=== PATIENT | male | born 1995 | race African-American/Black ===

== ENCOUNTER 2024-01-02 20:41 | Emergency (ER) | payer SELFPAY ==
[2024-01-02 20:47] VITALS: BP 126/76; PULSE 83; RESP 20; TEMP 98.2; BMI 25.1
[2024-01-02] MEDS ORDERED: ACETAMINOPHEN INJECTION 100 ML IVPB ONE (21:55)
[2024-01-02] MEDS ORDERED: DIPHTH,PERTUSS(ACELL),TET 0.5 ML DISP.SYRIN IM ONE (21:55)
[2024-01-02] MEDS ORDERED: METOCLOPRAMIDE HCL INJECTION 10 MG/2 ML VIAL ONE (21:55)
[2024-01-02 22:03] LABS: BASO % 0.6 % (0-2.0); EOS % 4.2 % (0-4.5); HEMATOCRIT 40.8 % (35.4-49); HEMOGLOBIN 13.5 GM/dL (11.7-16.9); LYMPH % 19.4 % (8-40); MCH 25.9 pg (25.7-33.7); MCHC 33.2 g/dl (32.0-35.9); MEAN CELL VOLUME 78.1 fl (80-96); MONO % 11.8 % (3.8-10.2); PLATELET COUNT 226 10^3/uL (134-434); RBC 5.22 M/mm3 (4.00-5.60); RDW 14.3 % (11.9-15.9); WHITE BLOOD COUNT 6.2 K/mm3 (4.0-10.0)
[2024-01-02] MEDS: SODIUM CHLORIDE 0.9% 500 ML INFUS.BAG IV ONE (22:04)
[2024-01-02] MEDS: DIPHTH,PERTUSS(ACELL),TET 0.5 ML DISP.SYRIN IM ONE (22:04)
[2024-01-02] MEDS: ACETAMINOPHEN 1000 MG/100 ML BAG IVPB ONE (22:04)
[2024-01-02] MEDS: METOCLOPRAMIDE HCL INJECTION 10 MG/2 ML VIAL IVPB ONE (22:04)
[2024-01-02 22:15] LABS: POTASSIUM 3.9 mmol/L (3.5-5.1)
[2024-01-02 22:17] LABS: CALCIUM 9.1 mg/dL (8.5-10.1)
[2024-01-02 22:18] LABS: ALBUMIN 4.1 g/dl (3.4-5.0); BLOOD UREA NITROGEN 12.4 mg/dL (7-18)
[2024-01-02 22:21] LABS: CREATININE 1.1 mg/dL (0.55-1.3)
[2024-01-02 22:22] LABS: BILIRUBIN,TOTAL 0.7 mg/dL (0.2-1)
[2024-01-02 22:23] LABS: TOT PROT 7.5 g/dl (6.4-8.2)
[2024-01-02] MEDS ORDERED: CEPHALEXIN MONOHYDRATE 500 MG CAPSULE (UD) ONE (23:20)
[2024-01-02] MEDS: CEPHALEXIN MONOHYDRATE 500 MG CAPSULE (UD) PO ONE (23:23)
== END 2024-01-02 23:28 | disposition home or self-care (01) ==
LOC: JER 20:41
PROC: 3E033NZ Introduction of Analgesics, Hypnotics, Sedatives into Peripheral Vein, Percutaneous Approach (ICD-10-PCS; principal; 2024-01-02)
PROC: 3E033GC Introduction of Other Therapeutic Substance into Peripheral Vein, Percutaneous Approach (ICD-10-PCS; 2024-01-02)
PROC: 3E0234Z Introduction of Serum, Toxoid and Vaccine into Muscle, Percutaneous Approach (ICD-10-PCS; 2024-01-02)
DX: S01.112A Laceration without foreign body of left eyelid and periocular area, initial encounter (principal); R55 Syncope and collapse; R42 Dizziness and giddiness; W01.198A Fall on same level from slipping, tripping and stumbling with subsequent striking against other object, initial encounter; Z23 Encounter for immunization
CPT/HCPCS: 36415; 80053; 82962; 84484; 85025; 90715; 93005; 93010; 99284-25; J0131